=== PATIENT | female | born 1990 | race Caucasian/White ===

== ENCOUNTER 2019-03-10 08:32 | Emergency (ER) | payer OTHER ==
[2019-03-10] MEDS ORDERED: Ketorolac INJ* 30 MG/ML 1 ML VIAL IM ONE (09:07)
--- NOTE | 2019-03-10 09:09 | ED ---
Abdominal Pain/Female - HPI Summary HPI Summary: Patient is a 28 y/o F presenting to ED with complaints of right groin pain. Sx onset 03/06/19 after she had been lifting heavy boxes. She notes pain at right groin area is aggravated with certain palpations and movements. She reports pain radiates to her right flank and right pelvic area as well. Pain had initially been intermittent but she notes that since last night, 03/09/19, her pain worsened and became constant. She states that she could not sleep because of the pain and had taken Dayquil today, 03/10/19, at 0200. Patient additionally claims that she experienced "heat exhaustion" on 03/06/19, noting that she had episodes of vomiting on 03/06/19 and multiple occurrences of diarrhea the following two days, 03/07/19 and 03/08/19. Diarrhea is described as watery. LNMP was February 25, patient notes that there is a chance that she is . Patient agreeable with pain medications. PMHx of depression and anxiety. PSHx of right ankle surgery. On triage, pain is rated 6/10, nothing is noted to aggravate/alleviate Sx. Home medications and allergies are reviewed. - History of Current Complaint Chief Complaint: EDAbdPain Stated Complaint: GROIN/ABD PAIN PER PT Time Seen by Provider: 03/10/19 08:57 Hx Obtained From: Patient Hx Last Menstrual Period: 02/25/19 Onset/Duration: Lasting Days, Still Present - right groin pain, Resolved - diarrhea, vomiting, Worse Since - right groin pain since last night Timing: Intermittent Episode Lasting - vomiting one day, diarrhea two days; right groin pain has been constant since last night Severity Initially: Mild Severity Currently: Moderate Pain Intensity: 6 Pain Scale Used: 0-10 Numeric Location: Groin - right groin pain Radiates: Yes Radiates to: Flank - right, Other - right pelvic area Aggravating Factor(s): Nothing Alleviating Factor(s): Nothing Associated Signs and Symptoms: Positive: Vomiting, Diarrhea Allergies/Adverse Reactions: Allergies Allergy/AdvReac Type Severity Reaction Status Date / Time Penicillins Allergy Hives Verified 03/10/19 08:38 PMH/Surg Hx/FS Hx/Imm Hx Sensory History: Denies: Hx Legally Blind, Hx Deafness Opthamlomology History: Denies: Hx Legally Blind EENT History: Denies: Hx Deafness Psychiatric History: Reports: Hx Anxiety, Hx Depression - Surgical History Surgery Procedure, Year, and Place: shortening ligament ankle Infectious Disease History: No Infectious Disease History: Denies: Traveled Outside the [place] in Last 30 Days - Family History Known Family History: Negative: Diabetes - Social History Alcohol Use: Weekly Alcohol Amount: 5x/week Substance Use Type: Reports: Marijuana Substance Use Comment - Amount & Last Used: about every 2 weeks Smoking Status (MU): Current Every Day Smoker Type: eCigarettes Review of Systems Negative: Fever - on vitals, temp 98.5 F Positive: Vomiting, Diarrhea Genitourinary: Other - positive - right groin pain with radiation to right flank and right pelvic area All Other Systems Reviewed And Are Negative: Yes Physical Exam - Summary Physical Exam Summary: Appearance: The patient is well-nourished in no acute distress and in no acute pain. Skin: The skin is warm and dry and skin color reflects adequate perfusion. HEENT: The head is normocephalic and atraumatic. The pupils are equal and reactive. The conjunctivae are clear and without drainage. Nares are patent and without drainage. Mouth reveals moist mucous membranes and the throat is without erythema and exudate. The external ears are intact. The ear canals are patent and without drainage. The tympanic membranes are intact. Neck: The neck is supple with full range of motion and non-tender. There are no carotid bruits. There is no neck vein distension. Respiratory: Chest is non-tender. Lungs are clear to auscultation and breath sounds are symmetrical and equal. Cardiovascular: Heart is regular rate and rhythm. There is no murmur or rub auscultated. There is no peripheral edema and pulses are symmetrical and equal. Abdomen: The abdomen is soft and non-tender. There are normal bowel sounds heard in all four quadrants and there is no organomegaly palpated. Musculoskeletal: There is no back tenderness noted. Extremities are non-tender with full range of motion. There is good capillary refill. There is no peripheral edema or calf tenderness elicited. Tenderness at right adnexa. Neurological: Patient is alert and oriented to person, place and time. The patient has symmetrical motor strength in all four extremities. Cranial nerves are grossly intact. Deep tendon reflexes are symmetrical and equal in all four extremities. Psychiatric: The patient has an appropriate affect and does not exhibit any anxiety or depression. Triage Information Reviewed: Yes Vital Signs On Initial Exam: Initial Vitals Temp Pulse Resp BP Pulse Ox 98.5 F 103 16 136/90 99 03/10/19 08:35 03/10/19 08:35 03/10/19 08:35 03/10/19 08:35 03/10/19 08:35 Vital Signs Reviewed: Yes Diagnostics - Vital Signs Vital Signs Temp Pulse Resp BP Pulse Ox 03/10/19 08:51 99 98 03/10/19 08:49 99 130/79 98 03/10/19 08:35 98.5 F 103 16 136/90 99 - Laboratory Result Diagrams: 03/10/19 09:21 03/10/19 09:21 Lab Statement: Any lab studies that have been ordered have been reviewed, and results considered in the medical decision making process. - Ultrasound No standard instances Ultrasound Interpretation Completed By: Radiologist Summary of Ultrasound Findings: PELVIC US IMPRESSION: Sonographic findings are most consistent with a hemorrhagic/involuting. dominant follicle in the right ovary in this otherwise normal and age-appropriate pelvic. ultrasound. THIS REPORT WAS REVIEWED BY DR. SMITH. Re-Evaluation - Re-Evaluation First Eval Re-Evaluation Time: 11:24 Comment: Results of labs and US discussed with patient. Patient was prescribed Tramadol and was advised to follow up with OBGYN. Strict return precautions given. Patient is agreeable with discharge to home. Abdominal Pain Fem Course/Dx - Course Course Of Treatment: Ms. Allen has been experiencing right groin pain which occasionally radiates up higher and into her back. She was nontoxic in appearance with stable vital signs throughout her stay here. Labs were unremarkable and an ultrasound of her pelvis revealed a hemorrhagic right ovarian cyst. - Diagnoses Provider Diagnoses: Hemorrhagic cyst of right ovary Discharge - Sign-Out/Discharge Documenting (check all that apply): Patient Departure - discharge Patient Received Moderate/Deep Sedation with Procedure: No - Discharge Plan Condition: Stable Disposition: HOME Prescriptions: traMADol TAB* [Ultram*] 50 mg PO Q6HR PRN #20 tab MDD 4 PRN Reason: Pain Patient Education Materials: Ovarian Cyst (ED) Referrals: Osmel Diaz MD [Medical Doctor] - 3 Days Care [facility] [Outside] - 3 Days Additional Instructions: PLEASE RETURN TO ED FOR ANY NEW OR CONCERNING SYMPTOMS. FOLLOW UP WITH YOUR PRIMARY CARE PHYSICIAN AND OBGYN WITHIN THREE DAYS. - Billing Disposition and Condition Condition: STABLE Disposition: Home - Attestation Statements Document Initiated by Dakota: Yes Documenting Scribe: LINCOLN NELSON Provider For Whom Dakota is Documenting (Include Credential): ANTHONY SMITH MD Scribe Attestation: LINCOLN Moya, scribed for ANTHONY SMITH MD on 03/10/19 at 1408. Scribe Documentation Reviewed: Yes Provider Attestation: The documentation as recorded by the LINCOLN muhammad accurately reflects the service I personally performed and the decisions made by me, ANTHONY SMITH MD Status of Scribe Document: Viewed
[2019-03-10 09:29] LABS: ABS Monocytes 0.7 10^3/ul (0-0.8); ABS Neutrophils 4.8 10^3/ul (1.5-7.7); Eosinophil % 0.1 %; Hematocrit 37 % (35-47); Hemoglobin 12.3 g/dL (12.0-16.0); Lymphocyte % 14.7 %; Mean Corpuscular HGB Conc 34 g/dL (31-36); Mean Corpuscular Hemoglobin 29 pg (27-31); Mean Corpuscular Volume 87 fL (80-97); Mean Platelet Volume 9.1 fL (7.4-10.4); Nucleated Red Blood Cells % 0.1; Platelet Count 179 10^3/uL (150-450); Red Blood Count 4.22 10^6 /uL (3.70-4.87); Red Cell Distribution Width 13 % (10-15); White Blood Count 6.6 10^3/uL (3.5-10.8)
[2019-03-10 09:44] LABS: ALT 15 U/L (7-52); AST 16 U/L (13-39); Albumin 3.7 g/dL (3.2-5.2); Albumin/Globulin Ratio 1.3 (1-3); Alkaline Phosphatase 66 U/L (34-104); Anion Gap 6 mmol/L (2-11); BUN/Creatinine Ratio 11.3 (8-20); Blood Urea Nitrogen 8 mg/dL (6-24); C Reactive Protein 21.78 mg/L (<8.01); CO2 Carbon Dioxide 25 mmol/L (22-32); Calcium 9.1 mg/dL (8.6-10.3); Chloride 106 mmol/L (101-111); EGFR African American 117.8 (>60); EGFR Non-African American 97.3 (>60); Globulin 2.8 g/dL (2-4); Glucose 101 mg/dL (70-100); Potassium 4.2 mmol/L (3.5-5.0); Sodium 137 mmol/L (135-145); Total Protein 6.5 g/dL (6.4-8.9)
[2019-03-10 09:51] LABS: HCG Pregnancy < 0.60 mIU/mL
[2019-03-10 11:13] LABS: Urine Appearance Clear; Urine Bilirubin Negative (Negative); Urine Blood Negative (Negative); Urine Color Yellow; Urine Glucose Negative (Negative); Urine Ketones Negative (Negative); Urine Nitrite Negative (Negative); Urine Protein Negative (Negative); Urine Specific Gravity 1.003 (1.010-1.030); Urine Urobilinogen Negative (Negative)
[2019-03-10 11:57] VITALS: BP 102/73
== END 2019-03-10 11:55 | disposition home or self-care (01) ==
LOC: ED 08:32
DX: N83.201 Unspecified ovarian cyst, right side (principal); F17.290 Nicotine dependence, other tobacco product, uncomplicated; Z88.0 Allergy status to penicillin
CPT/HCPCS: 36415; 76856; 80053; 81003; 83605; 84702; 85025; 86140; 96372; 99282; J1885

== ENCOUNTER 2022-01-22 03:29 | Inpatient (IN) ==
[2022-01-22] MEDS ORDERED: Buffered Lidocaine 1% SYRIN 1 ml INTRADERM ONE (04:32)
[2022-01-22] MEDS ORDERED: Lactated Ringers 1000 ml BAG 1,000 ML IV ONE (04:32)
[2022-01-22 04:57] LABS: Urine Benzodiazepine Screen None Detected (None Detect); Urine Cannabinoids Screen None Detected (None Detect); Urine Opiates Screen None Detected (None Detect)
[2022-01-22] MEDS ORDERED: Lactated Ringers 1000 ml BAG 1,000 ML IV SCH ×2 (05:00→16:00)
[2022-01-22] MEDS ORDERED: fentaNYL 100 mcg/2 ml 50 MCG/ML VIAL IV SLOW PU PRN (06:25)
[2022-01-22 06:58] LABS: ABS Basophils 0.1 10^3/ul (0-0.2); ABS Lymphocytes 1.1 10^3/ul (1.0-4.8); ABS Monocytes 0.8 10^3/ul (0-0.8); ABS Neutrophils 19.3 10^3/ul (1.5-7.7); Eosinophil % 0.1 %; Hematocrit 38 % (35-47); Hemoglobin 12.7 g/dL (12.0-16.0); Mean Corpuscular HGB Conc 33 g/dL (31-36); Mean Corpuscular Hemoglobin 30 pg (27-31); Mean Corpuscular Volume 90 fL (80-97); Mean Platelet Volume 10.2 fL (7.4-10.4); Platelet Count 154 10^3/uL (150-450); Red Blood Count 4.24 10^6 /uL (3.70-4.87); Red Cell Distribution Width 14 % (10-15); White Blood Count 21.3 10^3/uL (3.5-10.8)
[2022-01-22] MEDS ORDERED: OBEPIDURAL (200 ML) 200 ML EPIDURAL ONE (07:03)
[2022-01-22] MEDS ORDERED: Sodium Citrate/Citric Acid LIQ 15 ML UDC PO PRN (07:30)
[2022-01-22] MEDS ORDERED: Phenylephrine 40 mcg/mL 10mL (400mcg) SYRINGE IV PUSH PRN (07:30)
[2022-01-22] MEDS ORDERED: OBEPIDURAL (200 ML) 200 ML EPIDURAL SCH (08:00)
[2022-01-22 08:52] LABS: Urine Appearance Clear; Urine Bilirubin Negative (Negative); Urine Blood Negative (Negative); Urine Color Yellow; Urine Glucose Negative (Negative); Urine Ketones Negative (Negative); Urine Nitrite Negative (Negative); Urine Protein Negative (Negative); Urine Urobilinogen Negative (Negative)
[2022-01-22] MEDS ORDERED: Oxytocin in LR 20 UNITS/1,000 ML BAG IVPB ONE (12:28)
[2022-01-22] MEDS ORDERED: Witch Hazel PAD JAR TOPICAL PRN (15:13)
[2022-01-22] MEDS ORDERED: Dibucaine 1% OINT 28.35 GM TUBE PR PRN (15:13)
[2022-01-22] MEDS ORDERED: Methylergonovine 0.2 mg AMPULE 1 ml AMP IM ONE (15:13)
[2022-01-22] MEDS ORDERED: Oxytocin in LR 20 UNITS/1,000 ML BAG IVPB SCH (16:00)
[2022-01-22] MEDS ORDERED: Ammonia Inhalant 1 EA AMP ONE (21:13)
[2022-01-23 08:49] LABS: ABS Eosinophils 0.2 10^3/ul (0-0.6); ABS Lymphocytes 2.5 10^3/ul (1.0-4.8); ABS Monocytes 1.4 10^3/ul (0-0.8); ABS Neutrophils 14.9 10^3/ul (1.5-7.7); Eosinophil % 0.9 %; Hematocrit 28 % (35-47); Hemoglobin 9.2 g/dL (12.0-16.0); Lymphocyte % 13.4 %; Mean Corpuscular HGB Conc 33 g/dL (31-36); Mean Corpuscular Hemoglobin 30 pg (27-31); Mean Corpuscular Volume 91 fL (80-97); Mean Platelet Volume 9.9 fL (7.4-10.4); Platelet Count 147 10^3/uL (150-450); Red Blood Count 3.05 10^6 /uL (3.70-4.87); Red Cell Distribution Width 14 % (10-15)
[2022-01-24 08:25] VITALS: BP 104/56
== END 2022-01-24 12:52 | disposition home or self-care (01) | DRG 807 ==
LOC: MCHOBOUT 03:29 → MCHOB 03:40
PROVIDERS: ADMIT Midwife; ATTEND Midwife

== ENCOUNTER 2024-03-28 09:20 | Inpatient (IN) ==
[2024-03-28] MEDS ORDERED: Lidocaine 1% VIAL 10 MG/ML 30 ML VIAL INJ PRN (09:43)
[2024-03-28] MEDS ORDERED: Buffered Lidocaine 1% SYRIN 1 ml INTRADERM ONE (09:43)
[2024-03-28] MEDS ORDERED: Oxytocin in LR 20,000 MILLI.UNIT/1,000 ML BAG IV SCH (09:45)
[2024-03-28] MEDS: miSOPROStol 100 mcg TAB PO ONE ×2 (10:33→14:40)
[2024-03-28 11:15] LABS: ABS Eosinophils 0.1 10^3/uL (0.0-0.5); ABS Neutrophils 10.2 10^3/uL (1.5-7.6); ABS Nucleated RBC 0.02 10^3/ul; Eosinophil % 0.7 %; Hematocrit 36.1 % (35-45); Hemoglobin 12.2 g/dL (11.5-14.3); Lymphocyte % 14.8 %; Mean Corpuscular Hemoglobin 30.3 pg (27-33); Mean Corpuscular Hgb Conc 33.7 g/dL (31-36); Mean Corpuscular Volume 89.9 fL (80-97); Mean Platelet Volume 10.3 fL (7.5-11.2); Nucleated Red Blood Cells % 0.1 %/100WBC (0.0-0.8); Platelet Count 138 10^3/uL (150-450); Red Blood Count 4.02 10^6/uL (3.63-4.92); Red Cell Distribution Width 14.1 % (12-17); White Blood Count 13.3 10^3/uL (3.8-11.8)
[2024-03-28 12:04] LABS: Urine Benzodiazepine Screen None Detected (None Detect); Urine Cannabinoids Screen None Detected (None Detect); Urine Opiates Screen None Detected (None Detect)
[2024-03-28] MEDS: Lactated Ringers 1000 ml BAG 1,000 ML IV SCH (15:49)
[2024-03-28] MEDS ORDERED: Lidocaine 1.5% EPI 1:200,000 30 ML SDV ONE ×2 (19:24→22:19)
[2024-03-28] MEDS: OBEPIDURAL (200 ML) 200 ML EPIDURAL ONE (19:55)
[2024-03-28] MEDS ORDERED: Lactated Ringers 1000 ml BAG 1,000 ML IV ONE (20:03)
[2024-03-28] MEDS ORDERED: Sodium Citrate/Citric Acid LIQ 15 ML UDC PO PRN (20:03)
[2024-03-28] MEDS ORDERED: Phenylephrine 40 mcg/mL 10mL (400mcg) SYRINGE IV PUSH PRN (20:03)
[2024-03-28] MEDS ORDERED: fentaNYL 100 mcg/2 ml 50 MCG/ML VIAL ONE (20:06)
[2024-03-28] MEDS ORDERED: Lidocaine 2% w/ EPI 1:200,000 MPF 20 ML SDV VIAL ONE (20:45)
[2024-03-28] MEDS ORDERED: Lactated Ringers 1000 ml BAG 1,000 ML IV SCH (21:00)
[2024-03-28] MEDS: Lactated Ringers 1000 ml BAG 1,000 ML IV ONE (21:30)
[2024-03-28] MEDS: Phenylephrine 40 mcg/mL 10mL (400mcg) SYRINGE IV PUSH PRN (21:35)
[2024-03-28] MEDS ORDERED: OBEPIDURAL (200 ML) 200 ML EPIDURAL ONE (22:35)
[2024-03-28] MEDS: OBEPIDURAL (200 ML) 200 ML EPIDURAL SCH (22:40)
[2024-03-28] MEDS ORDERED: Tranexamic Acid 1 GM/100ML BAG 0 MG/0 ML BAG IV ONE (23:34)
[2024-03-29] MEDS: Oxytocin in LR 20,000 MILLI.UNIT/1,000 ML BAG IV SCH (00:25)
[2024-03-29] MEDS ORDERED: Glycerin ADULT 2.4 gm SUPP PR PRN (01:33)
[2024-03-29] MEDS ORDERED: Lactated Ringers 1000 ml BAG 1,000 ML IV SCH (02:00)
[2024-03-29] MEDS: Witch Hazel PAD JAR TOPICAL PRN (02:30)
[2024-03-29] MEDS: Dibucaine 1% OINT 28.35 GM TUBE PR PRN (02:30)
[2024-03-30 07:07] LABS: ABS Basophils 0.1 10^3/uL (0.0-0.1); ABS Eosinophils 0.1 10^3/uL (0.0-0.5); ABS Lymphocytes 3.1 10^3/uL (1.0-4.8); ABS Monocytes 1.1 10^3/uL (0.0-0.9); ABS Neutrophils 11.1 10^3/uL (1.5-7.6); Hematocrit 30.4 % (35-45); Hemoglobin 10.4 g/dL (11.5-14.3); Mean Corpuscular Hemoglobin 31.1 pg (27-33); Mean Corpuscular Hgb Conc 34.3 g/dL (31-36); Mean Corpuscular Volume 90.7 fL (80-97); Mean Platelet Volume 10.2 fL (7.5-11.2); Platelet Count 127 10^3/uL (150-450); Red Blood Count 3.35 10^6/uL (3.63-4.92); Red Cell Distribution Width 14.1 % (12-17); White Blood Count 15.5 10^3/uL (3.8-11.8)
[2024-03-30] MEDS ORDERED: Lidocaine 1% VIAL 10 MG/ML 30 ML VIAL ONE (07:07)
[2024-03-31 07:59] VITALS: BP 101/57
== END 2024-03-31 10:53 | disposition home or self-care (01) | DRG 807 ==
LOC: MCHOBOUT 09:20 → MCHOB 09:42
PROVIDERS: ADMIT Advanced Practice Midwife; ATTEND Advanced Practice Midwife